=== PATIENT | male | born 1980 | race Caucasian/White ===

== ENCOUNTER 2019-02-18 20:56 | Emergency (ER) | payer BC ==
[2019-02-18] MEDS ORDERED: Morphine 4 MG/ML VIAL ONE (21:23)
[2019-02-18] MEDS ORDERED: Ondansetron PF 4 MG/2 ML Vial ONE (21:23)
[2019-02-18 21:25] LABS: Bilirubin Negative (Negative); Blood, Urine Moderate (Negative); Clarity Slightly Cloudy (Clear); Glucose, Urine (Dipstick) Negative (Negative); Leukocyte Negative (Negative); Nitrite Negative (Negative); Protein, Urine (Dipstick) Negative (Neg-Trace); Specific Gravity, Urine 1.025 (1.005-1.030); Urobilinogen 0.2 mg/dL (0.2-1.0); pH, Urine 5.5 (5.0-9.0)
[2019-02-18 21:26] LABS: Squamous Epithelial 0-3 HPF (0-3); WBC/HPF 0-3 HPF (0-3)
[2019-02-18 21:27] LABS: Bacteria/HPF Rare-Few HPF (None Seen)
[2019-02-18 21:31] LABS: #Basophils 0.1 thou/uL (0.0-0.2); #Eosinphils 0.1 thou/uL (0.0-0.7); #Lymphocytes 1.5 thou/uL (1.20-3.40); #Monocytes 0.5 thou/uL (0.11-0.59); #Neutrophils 3.6 thou/uL (1.40-6.50); %Basophils 1.4 % (0.0-1.0); %Eosinophils 1.7 % (0.0-10.0); %Lymphocytes 26.4 % (21.0-51.0); %Monocytes 7.8 % (0.0-10.0); %Neutrophils 62.7 % (42.0-75.0); Hemoglobin 14.3 g/dL (14.0-18.0); Mean Corpuscular HGB CONC 33.1 g/dL (32.0-36.0); Mean Corpuscular Hemoglobin 27.6 pg (27.0-31.0); Mean Corpuscular Volume 83.3 fL (78.0-98.0); Mean Platelet Volume 8.1 fL (7.4-10.4); Platelet Count 185 thou/uL (130-400); Red Blood Cell (RBC) Count 5.18 mill/uL (4.70-6.10); White Blood Cell (WBC) Count 5.8 thou/uL (4.8-10.8)
[2019-02-18 21:48] LABS: ALT (SGPT) 46 U/L (8-55); AST (SGOT) 23 U/L (5-34); Alkaline Phosphatase 80 U/L (40-150); Anion Gap 15 mmol/L (10-20); BUN (Urea Nitrogen) 18 mg/dL (8.9-20.6); Bilirubin, Total 0.7 mg/dL (0.2-1.2); Calc. Creatinine Clearance 0 mL/min (70-130); Calcium 9.3 mg/dL (7.8-10.44); Carbon Dioxide 23 mmol/L (22-29); Chloride 105 mmol/L (98-107); Estimated GFR-MDRD 68; Globulin 2.8 g/dL (2.4-3.5); Glucose 186 mg/dL (70-105); Potassium 4.3 mmol/L (3.5-5.1); Protein, Total 6.8 g/dL (6.0-8.3); Sodium 139 mmol/L (136-145)
--- NOTE | 2019-02-18 21:50 | CT ---
Exam: Abdomen CT without contrast Pelvic CT without contrast HISTORY: Dark urine. Right flank pain. COMPARISON: None FINDINGS: Abdomen CT: Lung bases:Clear Heart size: Normal size. Aorta: Normal caliber Solid organs: Limited evaluation due to lack of IV contrast. There does appear to be hepatic steatosi s. Grossly the solid organs are unremarkable. Lymph nodes: No gastrohepatic, retrocrural or periportal lymphadenopathy Gallbladder: Unremarkable Mesentery: No mass, lymphadenopathy, free air or free fluid Kidneys: Bilateral nonobstructing 1 to 2 mm intrarenal calculi. No evidence of left-sided obstructive uropathy. Mild prominence of the right intrarenal and extra renal collecting system. Alimentary canal: Limited evaluation by technique. Moderate hiatal hernia. No evidence of bowel obstr uction. Normal caliber appendix. Unremarkable colon. CT PELVIS: No mass, adenopathy, free air or free fluid. Urinary bladder: Punctate 1 mm calculus in the right aspect of the bladder, likely representing a rec ently passed stone. Osseous structures: No lytic or blastic lesions IMPRESSION: 1. Mild right-sided obstructive uropathy secondary to a recently passed stone now in the right aspect of the urinary bladder. 2. Bilateral 1 to 2 mm nonobstructing intrarenal calculi 3. Moderate hiatal hernia.
[2019-02-18] MEDS ORDERED: Ketorolac Tromethamine 30 MG/ML VIAL ONE (22:40)
== END 2019-02-18 22:48 | disposition home or self-care (01) ==
LOC: SCSER 20:56
DX: N20.0 Calculus of kidney (principal); G47.30 Sleep apnea, unspecified; K21.9 Gastro-esophageal reflux disease without esophagitis; F32.9 Major depressive disorder, single episode, unspecified
CPT/HCPCS: 74176; 80053; 81003; 81015; 85025; 96361; 96374; 96375; J1885; J2270; J2405

== ENCOUNTER 2023-08-04 17:00 | Outpatient (CLI) | payer BC | END 2023-08-04 17:01 | disposition home or self-care (01) | LOC: SLEEPLAB 17:00 | PROVIDERS: ATTEND Physician Assistant | DX: G47.33 Obstructive sleep apnea (adult) (pediatric) (principal); E11.9 Type 2 diabetes mellitus without complications; K21.9 Gastro-esophageal reflux disease without esophagitis; E66.9 Obesity, unspecified; R06.83 Snoring; Z68.41 Body mass index [BMI] 40.0-44.9, adult | CPT/HCPCS: 95811 ==